=== PATIENT | male | born 1990 | race Caucasian/White ===

== ENCOUNTER → 2020-10-26 | Emergency (ER) | payer OTHER ==
[~2020-10-26] VITALS: Ht 167.6 cm; Wt 99.8 kg
== END | disposition home or self-care (01) ==
LOC: ER 13:10
DX: S43.51XA Sprain of right acromioclavicular joint, initial encounter (principal); S49.81XS Other specified injuries of right shoulder and upper arm, sequela; X50.9XXA Other and unspecified overexertion or strenuous movements or postures, initial encounter